=== PATIENT | male | born 1955 ===

== ENCOUNTER 2020-03-06 15:45 | Inpatient (IN) ==
[2020-03-06] MEDS ORDERED: GLUCAGON 1 MG VIAL IM PRN (18:45)
[2020-03-06] MEDS ORDERED: DEXTROSE 50% 25 GM/50 ML VIAL IV PRN (18:45)
[2020-03-06] MEDS ORDERED: ONDANSETRON 4 MG/2 ML VIAL IV PRN (18:45)
[2020-03-06] MEDS: PANTOPRAZOLE 40 MG TABLET PO SCH ×2 (19:10→20:22)
[2020-03-06 19:41] LABS: Basophils # 0.1 10*3/uL (0.0-0.2); Basophils % 0.6 % (0.0-0.8); Eosinophils # 0.1 10*3/uL (0.0-0.87); Eosinophils % 1.1 % (0.00-10.9); Immature Granulocytes % 0.7 %; Immature Granulocytes Absolute 0.08 #; Lymphocytes # 1.5 10*3/uL (1.4-4.0); Mean Corpuscular HGB Conc 30.7 GM/DL (32-36); Mean Corpuscular Volume 98.7 FL (87-102); Mean Platelet Volume 9.5 FL (9.6-12.0); Monocytes % 7.6 % (1.7-12.7); Platelet Count 262 T/CUMM (130-400); Red Blood Count 1.52 MC/CUMM (3.8-5.5); Red Cell Distribution Width 15.8 % (9.3-17.3); White Blood Count 10.7 T/CUMM (4-12)
[2020-03-06 19:45] LABS: Hemoglobin 4.6 GM/DL (14.0-18.0)
[2020-03-06] MEDS: SODIUM CHLORIDE 0.9% 1,000 ML IV SCH (19:57)
[2020-03-06 20:12] LABS: Calcium 7.5 MG/DL (8.5-10.1); Osmolality,Calculated 294.3 MOS/KG (273-304)
[2020-03-06] MEDS ORDERED: ACETAMINOPHEN 325 MG TABLET PO PRN (20:45)
[2020-03-06] MEDS: INSULIN GLARGINE 100 UNIT/ML SUBCUT SCH (21:01)
[2020-03-06] MEDS: INSULIN LISPRO 100 UNIT/ML SUBCUT SCH (21:01)
[2020-03-07 06:34] LABS: Basophils # 0.1 10*3/uL (0.0-0.2); Basophils % 0.9 % (0.0-0.8); Eosinophils # 0.5 10*3/uL (0.0-0.87); Eosinophils % 4.3 % (0.00-10.9); Hematocrit 23.8 VOL% (42.0-52.0); Immature Granulocytes % 0.8 %; Immature Granulocytes Absolute 0.08 #; Lymphocytes # 2.1 10*3/uL (1.4-4.0); Lymphocytes % 20.5 % (21.2-54.2); Mean Corpuscular HGB Conc 32.8 GM/DL (32-36); Mean Corpuscular Volume 93.7 FL (87-102); Mean Platelet Volume 10.7 FL (9.6-12.0); Monocytes % 10.2 % (1.7-12.7); NRBC # 0.03 10*3/uL; Neutrophils % 63.3 % (38.7-73.9); Platelet Count 213 T/CUMM (130-400); Red Cell Distribution Width 15.3 % (9.3-17.3); White Blood Count 10.4 T/CUMM (4-12)
[2020-03-07 06:43] LABS: Red Blood Count 2.54 MC/CUMM (3.8-5.5)
[2020-03-07 06:44] LABS: Hemoglobin 7.8 GM/DL (14.0-18.0)
[2020-03-07 06:53] LABS: Albumin 1.8 G/DL (3.4-5.0); Bilirubin,Total 0.9 MG/DL (0.2-1.0); Calcium 7.2 MG/DL (8.5-10.1)
[2020-03-07] MEDS: INSULIN LISPRO 100 UNIT/ML SUBCUT SCH ×4 (08:14→21:50)
[2020-03-07] MEDS: PANTOPRAZOLE 40 MG TABLET PO SCH ×2 (08:48→21:50)
[2020-03-07] MEDS: BISACODYL 5 MG TABLET PO SCH ×2 (08:49→17:48)
[2020-03-07] MEDS ORDERED: SODIUM CHLORIDE 0.9% 1,000 ML IV PRN ×2 (10:33→12:35)
[2020-03-07] MEDS ORDERED: SODIUM POLYSTYRENE SULFATE 15 GM/60 ML BOTTLE PO STA (10:39)
[2020-03-07] MEDS ORDERED: DEXMEDETOMIDINE 200 MCG in SODIUM CHLORIDE 0.9% 48 ML IV PRN (10:47)
[2020-03-07] MEDS: DEXAMETHASONE 10 MG/1 ML VIAL IV SCH (11:28)
[2020-03-07] MEDS: ASCORBIC ACID 500 MG TABLET PO SCH ×2 (12:07→21:50)
[2020-03-07] MEDS: ZINC SULFATE 220 MG CAPSULE PO SCH (12:07)
[2020-03-07] MEDS: ALBUTEROL INHALER 18 GM INH SCH ×2 (14:43→21:50)
[2020-03-07] MEDS ORDERED: POLYETHYLENE GLYCOL POWDER 255 GM BOTTLE PO ONE (18:00)
[2020-03-07] MEDS: SODIUM CHLORIDE 0.9% 1,000 ML IV SCH ×2 (18:39→21:55)
[2020-03-07] MEDS ORDERED: AZITHROMYCIN 250 MG TABLET PO ONE (21:00)
[2020-03-07] MEDS: INSULIN GLARGINE 100 UNIT/ML SUBCUT SCH (21:50)
[2020-03-07] MEDS: cefTRIAXone 1,000 MG in SYRINGE 1 EACH IV SCH (21:50)
[2020-03-07] MEDS: AZITHROMYCIN INJ 500 MG in SODIUM CHLORIDE 0.9% 250 ML IV SCH (21:55)
[2020-03-07 22:07] LABS: Hematocrit 29.3 VOL% (42.0-52.0)
[2020-03-07 22:09] LABS: Hemoglobin 9.8 GM/DL (14.0-18.0)
[2020-03-07 23:35] LABS: Hematocrit 28.7 VOL% (42.0-52.0); Hemoglobin 9.6 GM/DL (14.0-18.0)
[2020-03-08] MEDS: ALBUTEROL INHALER 18 GM INH SCH ×4 (00:25→18:40)
[2020-03-08] MEDS: BISACODYL 5 MG TABLET PO SCH (00:38)
[2020-03-08] MEDS ORDERED: LACTATED RINGERS 1,000 ML IV SCH (07:00)
[2020-03-08 07:19] LABS: Hematocrit 26.6 VOL% (42.0-52.0); Hemoglobin 8.8 GM/DL (14.0-18.0)
[2020-03-08 07:30] LABS: Calcium 7.7 MG/DL (8.5-10.1)
[2020-03-08 07:31] LABS: Calcium 7.9 MG/DL (8.5-10.1)
[2020-03-08] MEDS ORDERED: PHENYLEPHRINE 1 MG/10 ML SYRINGE IV ONE (09:11)
[2020-03-08] MEDS ORDERED: ETOMIDATE 40 MG/20 ML VIAL IV ONE (09:11)
[2020-03-08] MEDS ORDERED: propofoL 200 MG/20 ML VIAL IV ONE (09:11)
[2020-03-08] MEDS ORDERED: SODIUM CHLORIDE 0.9% 250 ML IV ONE (09:11)
[2020-03-08] MEDS ORDERED: LIDOCAINE 2% 5 ML VIAL ONE (09:11)
[2020-03-08] MEDS: INSULIN LISPRO 100 UNIT/ML SUBCUT SCH ×4 (09:53→21:30)
[2020-03-08] MEDS: ASCORBIC ACID 500 MG TABLET PO SCH ×2 (10:28→21:22)
[2020-03-08] MEDS: PANTOPRAZOLE 40 MG TABLET PO SCH ×2 (10:28→21:22)
[2020-03-08] MEDS: DEXAMETHASONE 10 MG/1 ML VIAL IV SCH (10:28)
[2020-03-08] MEDS: ZINC SULFATE 220 MG CAPSULE PO SCH (10:28)
[2020-03-08] MEDS: POTASSIUM CHLORIDE RIDER 10 MEQ in PREMIX 1 EACH IV PRN ×5 (13:51→23:55)
[2020-03-08] MEDS: SODIUM CHLORIDE 0.9% 1,000 ML IV SCH (15:59)
[2020-03-08 16:28] LABS: Hematocrit 28.4 VOL% (42.0-52.0); Hemoglobin 9.4 GM/DL (14.0-18.0)
[2020-03-08] MEDS ORDERED: AZITHROMYCIN 250 MG TABLET PO SCH (21:00)
[2020-03-08] MEDS: GABAPENTIN 300 MG CAPSULE PO SCH (21:22)
[2020-03-08] MEDS: cefTRIAXone 1,000 MG in SYRINGE 1 EACH IV SCH (21:24)
[2020-03-08] MEDS: AZITHROMYCIN INJ 500 MG in SODIUM CHLORIDE 0.9% 250 ML IV SCH (21:29)
[2020-03-08] MEDS: INSULIN GLARGINE 100 UNIT/ML SUBCUT SCH (21:30)
[2020-03-08 23:57] LABS: Hematocrit 27.2 VOL% (42.0-52.0); Hemoglobin 8.9 GM/DL (14.0-18.0)
[2020-03-09] MEDS: ALBUTEROL INHALER 18 GM INH SCH ×4 (01:10→18:32)
[2020-03-09] MEDS: SODIUM CHLORIDE 0.9% 1,000 ML IV SCH ×2 (06:15→20:38)
[2020-03-09] MEDS: INSULIN LISPRO 100 UNIT/ML SUBCUT SCH ×4 (07:36→21:06)
[2020-03-09] MEDS: GABAPENTIN 300 MG CAPSULE PO SCH ×2 (08:09→20:40)
[2020-03-09] MEDS: ASCORBIC ACID 500 MG TABLET PO SCH ×2 (08:09→20:40)
[2020-03-09] MEDS: ZINC SULFATE 220 MG CAPSULE PO SCH (08:09)
[2020-03-09] MEDS: PANTOPRAZOLE 40 MG TABLET PO SCH ×2 (08:09→20:40)
[2020-03-09] MEDS: DEXAMETHASONE 10 MG/1 ML VIAL IV SCH (08:10)
[2020-03-09] MEDS: POTASSIUM CHLORIDE RIDER 10 MEQ in PREMIX 1 EACH IV PRN ×3 (08:11→12:43)
[2020-03-09] MEDS: INSULIN GLARGINE 100 UNIT/ML SUBCUT SCH (20:40)
[2020-03-09] MEDS: cefTRIAXone 1,000 MG in SYRINGE 1 EACH IV SCH (20:40)
[2020-03-09] MEDS: AZITHROMYCIN INJ 500 MG in SODIUM CHLORIDE 0.9% 250 ML IV SCH (21:05)
[2020-03-10] MEDS: ALBUTEROL INHALER 18 GM INH SCH ×4 (00:03→19:35)
[2020-03-10] MEDS: SODIUM CHLORIDE 0.9% 1,000 ML IV SCH ×2 (03:10→15:28)
[2020-03-10 05:37] LABS: Basophils # 0.1 10*3/uL (0.0-0.2); Basophils % 0.8 % (0.0-0.8); Eosinophils # 0.3 10*3/uL (0.0-0.87); Eosinophils % 3.5 % (0.00-10.9); Hematocrit 27.7 VOL% (42.0-52.0); Hemoglobin 8.9 GM/DL (14.0-18.0); Immature Granulocytes % 0.5 %; Immature Granulocytes Absolute 0.04 #; Lymphocytes # 2.1 10*3/uL (1.4-4.0); Lymphocytes % 26.7 % (21.2-54.2); Mean Corpuscular HGB Conc 32.1 GM/DL (32-36); Mean Corpuscular Volume 94.2 FL (87-102); Mean Platelet Volume 9.5 FL (9.6-12.0); Monocytes % 10.4 % (1.7-12.7); Neutrophils % 58.1 % (38.7-73.9); Platelet Count 220 T/CUMM (130-400); Red Blood Count 2.94 MC/CUMM (3.8-5.5); Red Cell Distribution Width 16.7 % (9.3-17.3); White Blood Count 7.8 T/CUMM (4-12)
[2020-03-10 06:07] LABS: Calcium 7.9 MG/DL (8.5-10.1); Osmolality,Calculated 279.4 MOS/KG (273-304)
[2020-03-10] MEDS: GABAPENTIN 300 MG CAPSULE PO SCH (08:25)
[2020-03-10] MEDS: PANTOPRAZOLE 40 MG TABLET PO SCH ×2 (08:26→21:13)
[2020-03-10] MEDS: ASCORBIC ACID 500 MG TABLET PO SCH ×2 (08:26→21:12)
[2020-03-10] MEDS: DEXAMETHASONE 10 MG/1 ML VIAL IV SCH (08:26)
[2020-03-10] MEDS: ZINC SULFATE 220 MG CAPSULE PO SCH (08:26)
[2020-03-10] MEDS: INSULIN LISPRO 100 UNIT/ML SUBCUT SCH ×4 (09:23→21:19)
[2020-03-10] MEDS: GABAPENTIN 600 MG TABLET PO SCH (21:13)
[2020-03-10] MEDS: AZITHROMYCIN 250 MG TABLET PO SCH (21:13)
[2020-03-10] MEDS: cefTRIAXone 1,000 MG in SYRINGE 1 EACH IV SCH (21:13)
[2020-03-10] MEDS: INSULIN GLARGINE 100 UNIT/ML SUBCUT SCH (21:20)
[2020-03-11] MEDS: ALBUTEROL INHALER 18 GM INH SCH ×4 (00:28→21:50)
[2020-03-11] MEDS: SODIUM CHLORIDE 0.9% 1,000 ML IV SCH ×2 (03:48→04:55)
[2020-03-11 06:57] LABS: Basophils % 0.4 % (0.0-0.8); Eosinophils # 0.4 10*3/uL (0.0-0.87); Eosinophils % 4.1 % (0.00-10.9); Hematocrit 29.7 VOL% (42.0-52.0); Hemoglobin 9.8 GM/DL (14.0-18.0); Immature Granulocytes % 0.4 %; Immature Granulocytes Absolute 0.04 #; Lymphocytes # 2.5 10*3/uL (1.4-4.0); Lymphocytes % 27.3 % (21.2-54.2); Mean Corpuscular Volume 92.5 FL (87-102); Mean Platelet Volume 9.6 FL (9.6-12.0); Monocytes % 9.5 % (1.7-12.7); Neutrophils % 58.3 % (38.7-73.9); Platelet Count 248 T/CUMM (130-400); Red Blood Count 3.21 MC/CUMM (3.8-5.5); Red Cell Distribution Width 16.1 % (9.3-17.3); White Blood Count 9.2 T/CUMM (4-12)
[2020-03-11 07:23] LABS: Osmolality,Calculated 282.1 MOS/KG (273-304)
[2020-03-11] MEDS: INSULIN LISPRO 100 UNIT/ML SUBCUT SCH ×4 (08:26→21:49)
[2020-03-11] MEDS: ZINC SULFATE 220 MG CAPSULE PO SCH (09:47)
[2020-03-11] MEDS: GABAPENTIN 600 MG TABLET PO SCH ×2 (09:47→21:50)
[2020-03-11] MEDS: PANTOPRAZOLE 40 MG TABLET PO SCH ×2 (09:47→21:50)
[2020-03-11] MEDS: ASCORBIC ACID 500 MG TABLET PO SCH ×2 (09:47→21:50)
[2020-03-11] MEDS: DEXAMETHASONE 10 MG/1 ML VIAL IV SCH (09:47)
[2020-03-11] MEDS ORDERED: POTASSIUM CHLORIDE 20 MEQ/15 ML UDCUP PO ONE (12:00)
[2020-03-11] MEDS: cefTRIAXone 1,000 MG in SYRINGE 1 EACH IV SCH (21:45)
[2020-03-11] MEDS: AZITHROMYCIN 250 MG TABLET PO SCH (21:50)
[2020-03-11] MEDS: INSULIN GLARGINE 100 UNIT/ML SUBCUT SCH (22:00)
[2020-03-11 23:55] VITALS: BP 142/70
== END 2020-03-12 00:06 | DRG 813 ==
LOC: SUATTDRO 18:14 → N.CC 18:14 → N.2E 03-07 15:55
PROVIDERS: ADMIT Internal Medicine; ATTEND Internal Medicine
PROC: COLONBX (2020-03-08 07:35)